=== PATIENT | male | born 1945 | race Caucasian/White ===

== ENCOUNTER → 2016-09-06 | Outpatient (CLI) | payer MEDICARE, BC ==
[~2016-09-06] MED LIST: ALEVE-D SINUS-1 EACH PO; ASCORBIC ACID500 M2 PO; ASPIRIN81 M2 PO; DITROPAN PO; FISH OIL 1,0001 EAC3 PO; GLUCOSAMINE & C1 CAP PO; IRON1 TAB PO; NAPROSYN500 MG PO; OMEPRAZOLE20 M2 PO; SIMVASTATIN40 MG PO; ZANTAC150 M1 PO
--- NOTE | ~2016-09-06 | EKG ---
PATIENT: LEVY NARANJO UNIT #: [id number] Ventricular Rate: 51 BPM Atrial Rate: 51 BPM P-R Interval: 152 ms QRS Duration: 88 ms Q-T Interval: 456 ms QTC Calculation(Bezet): 420 ms P [place]: 73 degrees Calculated R [place]: 75 degrees Calculated T [place]: 79 degrees Diagnosis Line: Sinus bradycardia Diagnosis Line: Otherwise normal ECG Diagnosis Line: No previous ECGs available Diagnosis Line: Confirmed by DON LEDEZMA MD ([id number]) on 09/09/2016 Diagnosis Line: 10:45:47 PM INTERPRETING MD: DARIEN CRANE
== END | disposition home or self-care (01) ==
LOC: CAMB 10:44
DX: Z01.810 Encounter for preprocedural cardiovascular examination (principal); G56.01 Carpal tunnel syndrome, right upper limb
CPT/HCPCS: 93005

== ENCOUNTER → 2016-09-10 | Day surgery (SDC) | payer MEDICARE, BC ==
--- NOTE | ~2016-09-10 | OR ---
Unit #: [id number] #: [id number] Patient: LEVY SHAFFER [id number] [address] [address] [id number] MR#: [id number] NAME: LEVY SHAFFER ROOM: Date of Procedure: 09/10/2016 Admission Date: 09/10/2016 Surgeon: Cedrick Kruger M.D. : 1945 Attending Physician: Cedrick Kruger M.D. Referring Physician: Cedrick Kruger M.D. Primary Care Physician: Jose Madison M.D. OPERATIVE REPORT PREOPERATIVE DIAGNOSIS Right carpal tunnel syndrome. POSTOPERATIVE DIAGNOSIS Right carpal tunnel syndrome. PROCEDURE PERFORMED Right open carpal tunnel release. 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 ANESTHESIA General with LMA. COMPLICATIONS None. SPECIMENS None. DRAINS None. SURGICAL IMPLANTS None. INDICATION FOR PROCEDURE Mr. Shaffer is a pleasant patient of raksul, who I have seen for quite a while regarding multiple issues. He presents with bilateral carpal tunnel syndrome. He has had prior cortisone injections and positive EMG test. The patient was interested in surgical intervention. He declined further treatment with injections and night bracing. He has a positive EMG test with positive paresthesias along the median nerve distribution and pain at night. It was felt that he would benefit from open release of the carpal tunnel. Risks, benefits, and alternatives of the surgery were discussed with the patient. Informed consent was obtained. Risks include, but not limited to, infection, bleeding, nerve injury, blood clots, risks associated with anesthesia, need for further surgery, and possibly . DESCRIPTION OF PROCEDURE On 09/10/2016, the patient was seen in the preoperative holding area, Unit #: [id number] #: [id number] Patient: LEVY SHAFFER where his surgical site was marked. Preoperative antibiotics were received. H and P and consent updated. He was taken to the operating room and provided general anesthesia. Right upper extremity was prepped and draped in typical sterile fashion. Time-out was performed confirming the correct surgical site and procedure. Esmarch was used to exsanguinate the arm and tourniquet inflated to 250 mmHg. A longitudinal incision was made in line with the fourth ray from Mathew's line back to the distal wrist flexion crease. This was just over an inch in length. Incision was taken down through the skin and subcutaneous tissue. Palmar fascia was incised longitudinally. Retractors were placed. Transverse carpal ligament was identified. It was noted to be thickened. The 15 blade was used to carefully penetrated through the ligament. A Ripley was then used to remove any adhesions of the soft tissues beneath the ligament proximally and distally. With the Ripley in place, the knife was used to complete the release distally to the palmar fat until the palmar fat was exposed. Proximally the retractors were placed and the proximal extent of the transverse carpal ligament was released with Metzenbaum scissors under direct visualization. Once this was complete, the tourniquet was released. Hemostasis was achieved. Wound was thoroughly irrigated. The subcutaneous tissues were injected with 0.5% Marcaine without epinephrine. The skin incision was then closed with simple nylon 4-0 sutures. Xeroform, 4x4s, cast padding, and a well padded volar splint were placed. The patient was subsequently awakened from general anesthesia in stable condition and taken to the PACU postoperatively. POSTOPERATIVE PLAN The patient will be discharged home. He will follow up in my office in 10 to 14 days. The splint can come off after 7 days. Sutures will be removed in 7 to 10 days. He can work on digit motion. He will keep the splint clean and dry until it was removed. No complications were encountered during the surgical procedure. Dictated by... Cedrick Kruger M.D. CLARY/aneesh TD: 09/11/2016 06:03 JOB #: [id number] OPERATIVE REPORT Page 1 of 1 X X PROCEDURE OPERATIVE NOTE
== END | disposition home or self-care (01) ==
LOC: CSUR 09:04
DX: G56.01 Carpal tunnel syndrome, right upper limb (principal); K21.9 Gastro-esophageal reflux disease without esophagitis; I10 Essential (primary) hypertension; E78.5 Hyperlipidemia, unspecified; Z88.2 Allergy status to sulfonamides; Z88.1 Allergy status to other antibiotic agents; Z90.79 Acquired absence of other genital organ(s); Z85.46 Personal history of malignant neoplasm of prostate; Z90.49 Acquired absence of other specified parts of digestive tract; Z90.89 Acquired absence of other organs; Z86.711 Personal history of pulmonary embolism; Z87.01 Personal history of pneumonia (recurrent); Z79.82 Long term (current) use of aspirin; Z79.899 Other long term (current) drug therapy; Z88.0 Allergy status to penicillin
CPT/HCPCS: J2250; J2405; J3010